=== PATIENT | male | born 1970 | race Caucasian/White ===

== ENCOUNTER → 2018-07-31 | Day surgery (SDC) | payer BC ==
[~2018-07-31] MED LIST: AMLO10TA6 PO; BUPIVAC MPF-EPI 0.5%-1:200000 30 ML VIAL. IJ ONE; BUPIVAC MPF-EPI 0.5%-1:200000 30 ML VIAL. ONE; BUPIVACAINE MPF 0.5% 30 ML VIAL. ONE; LOSA1TAB25 PO; SILD100T PO; TADA5TAB PO
[2018-07-31 13:48] VITALS: BP 115/78
--- NOTE | 2018-07-31 15:14 | PDOC4 ---
BRIEF OPERATIVE NOTE Brief Operative Note: Date: Jul 31, 2018 Pre-Op Diagnosis: cyst right groin Post-Op Diagnosis: same Procedure: excision Surgeon: Herminio Anesthesia Type: Local Blood Loss: none Specimans: skin and subcutaneous tissue 3x2.5x1 cm Findings: cyst Complications: none Operative Note: # [id number] CARRIE KATHLEEN MD Jul 31, 2018 15:14
--- NOTE | 2018-07-31 15:32 | OP ---
DATE OF SURGERY: 07/31/2018 PREOPERATIVE DIAGNOSIS: Cyst, right groin. POSTOPERATIVE DIAGNOSIS: Cyst, right groin. PROCEDURE: Excision. SURGEON: Sravan Kathleen MD ANESTHESIA: Local. ESTIMATED BLOOD LOSS: Skin and subcutaneous tissue 3 x 2.5 x 1 cm. OPERATIVE REPORT: The patient was brought to the minor surgery suite. Right groin prepped and draped in usual sterile fashion. An elliptical incision, which had been outlined with a marking pen, was infiltrated with 0.5% Marcaine with epinephrine. The skin was incised and the skin and underlying process removed en bloc. Hemostasis with cautery. Wound closed with interrupted inverted 3-0 Vicryl in the subcutaneous tissue and a 4-0 Monocryl subcuticular stitch with Steri-Strips for the skin. Sterile dressing applied. The patient dismissed having tolerated the procedure well. SRAVAN KATHLEEN MD DR: LIZZIE/augusto JOB#: [id number] / [id number] [address]
--- NOTE | 2018-08-04 15:09 | PATHOLOGY ---
[facility] Accession Number: [id number] . 01 Material submitted: . SEBACEOUS CYST RIGHT GROIN . 01 Clinical history: . Sebaceous cyst . 02 Diagnosis: Skin and subcutaneous tissue, right groin lesion excision: - Epidermal inclusion cyst, ruptured, with acute inflammation and surrounding fibrosis, chronic inflammation, and focal foreign body giant cell reaction. (JPM:janis; 08/04/2018) QMS/08/04/2018 . 02 Comment: There is no evidence of malignancy. . 02 Electronically signed: . Ang Gordillo MD, Pathologist NPI- [id number] . 01 Gross description: . The specimen is received in formalin, labeled "Umesh Jakob, skin lesion" and consists of an unoriented bro-woody skin ellipse measuring 2.8 x 0.9 cm with underlying yellow-woody tissue measuring 2.6 x 2.3 x 1.1 cm. Sectioning reveals an abscess cavity containing woody firm material which measures up to 2.0 cm. A food service representative section is submitted in A1. (SDY; 08/01/2018) SYU/SYU . 02 Pathologist provided ICD-10: L72.0 . 02 CPT . 157461 Specimen Comment: A courtesy copy of this report has been sent to Specimen Comment: [phone]. Specimen Comment: Report sent to Performed at: [facility] [address], [place] [id number] MD Caden Wei MD Phone: [phone] Performed at: [facility] [address] [place], [place] [id number] MD Ang Gordillo MD Phone: [phone]
== END | disposition home or self-care (01) ==
LOC: SURG 11:18
PROVIDERS: ATTEND Surgery
DX: L72.0 Epidermal cyst (principal); L08.89 Other specified local infections of the skin and subcutaneous tissue; I10 Essential (primary) hypertension; K21.9 Gastro-esophageal reflux disease without esophagitis; Z79.899 Other long term (current) drug therapy; Z82.49 Family history of ischemic heart disease and other diseases of the circulatory system; Z98.890 Other specified postprocedural states; F17.210 Nicotine dependence, cigarettes, uncomplicated; Z72.89 Other problems related to lifestyle
CPT/HCPCS: 11403; 12032; 88304; J3490; 11402